=== PATIENT | female | born 1985 | race Hispanic/Latino ===

== ENCOUNTER 2020-11-13 10:19 | Day surgery (SDC) | payer BC ==
[~2020-11-13 10:19] MED LIST: SODIUM CHLORIDE 0.9% 1000 ML 1,000 ML IV SCH
[2020-11-13] MEDS ORDERED: LIDOCAINE MPF (2%) 20 MG/1 ML VIAL 5 ML ONE (12:17)
[2020-11-13] MEDS ORDERED: propofoL 200 MG/20 ML VIAL IV ONE ×4 (12:17→12:40)
--- NOTE | 2020-11-13 12:51 | Anesthesia Day of Surgery ---
Anesthesia Day of Surgery - Day of Surgery Patient Examined: Yes Patient H&P Reviewed: Yes Patient is NPO: Yes
--- NOTE | 2020-11-13 12:51 | Anesthesia Consultation ---
Anesthesia Consult and Med Hx Date of service: 11/13/20 - Airway Anesthetic Teeth Evaluation: Good ROM Head & Neck: Adequate Mental/Hyoid Distance: Adequate Mallampati Class: Class I Intubation Access Assessment: Good - Pre-Operative Health Status ASA Pre-Surgery Classification: ASA2 Proposed Anesthetic Plan: MAC - Pulmonary Hx Smoking: Yes Hx Respiratory Symptoms: No - Cardiovascular System Hx Hypertension: No - Central Nervous System CVA: No - Gastrointestinal Hx Gastroesophageal Reflux Disease: No (possible hx IBD) - Endocrine Hx Renal Disease: No Hx Liver Disease: No Hx Insulin Dependent Diabetes: No Hx Non-Insulin Dependent Diabetes: No Hx Hypothyroidism: Yes (resolved) - Other Systems Hx Obesity: Yes (BMI 36)
--- NOTE | 2020-11-13 13:04 | Procedure Note ---
Date of procedure: 11/13/20 Pre-op diagnosis: Abdominal Pain/ Diarrhea/ GI Bleeding Post-op diagnosis: other (Mild to Moderate Distal Erosive Esophagitis/Gastric Erosion/R/O Celiac Disease/ R/O Microscopic Colitis/ R/O Ileitis) Procedure: EGD with Biopsy/ Colonoscopy with Biopsy Anesthesia: [facility] Surgeon: ROBERT JAQUEZ Estimated blood loss: minimal Pathology: list Specimen disposition: to lab Condition: stable Disposition: same day (Treat PPI, prn Bentyl and Welchol (for diarrhea). Avoid aspirin and NSAID for 4 days; otherwise resume home medication and follow up in 1 to 2 weeks ([phone]).)
--- NOTE | 2020-11-13 13:06 | Operative Report ---
PROCEDURE: Esophagogastroduodenoscopy with biopsy. INDICATIONS: This is a 35-year-old white female who has an underlying history of eczema. She has a family history of Crohn's disease. The patient's mother had Crohn's disease. She has lately been complaining of some abdominal pain, diarrhea and on occasion, GI bleeding. EGD was done to make sure there was not any significant upper GI pathology present. DESCRIPTION OF PROCEDURE: The procedure was done after getting informed consent with MAC anesthesia. Instrument was passed through the hypopharynx into the esophagus, which showed some mild to moderate distal erosive esophagitis and biopsy was done from the distal esophagus to assess for the severity of erosive esophagitis as well as from the midesophagus to rule out eosinophilic esophagitis. The stomach showed gastric erosion in the antrum and gastritis. No ulcers were noted in the straight or the retroverted view. There was no evidence of any GI bleeding within the gastric lumen. The pylorus was patent. The duodenum in the first and second portion appeared normal. There was no blood within the duodenal lumen. Biopsy was done from the second part to rule out for possible celiac disease. Additional biopsy was done from the gastric antrum, gastric body and angular incisura to rule out for H. pylori and atrophic gastritis. There was minimal bleeding associated with the procedure. No complications associated with the procedure. ASSESSMENT: Abdominal pain, mild to moderate distal erosive esophagitis, rule out eosinophilic esophagitis, gastritis, gastric erosion, rule out celiac disease. No active upper GI bleeding noted. PLAN: To treat the patient with PPI, have the patient avoid aspirin and aspirin-related products for the next few days and also treat the patient with Bentyl for any abdominal pain. Colonoscopy will be done for further assessment of the patient's diarrhea and to rule out for any inflammatory bowel disease since the patient has a family history of Crohn's disease, namely the patient's mother. The procedure was done in the GI lab with assistance of the GI lab team, which included Dorys ARZATE; Jose A jameson and with assistance of Anesthesia. JOB# [id number] RYDER/SHAWNA
--- NOTE | 2020-11-13 13:11 | Operative Report ---
PROCEDURE: Colonoscopy with biopsy. INDICATIONS: This is a 35-year-old white female who has been complaining of some abdominal pain, diarrhea and on occasion GI bleeding. She has a family history of Crohn's disease. Mother had Crohn's disease. EGD had shown presence of gastric erosion, gastritis, and some esophagitis, but no evidence of any upper GI bleeding or no evidence of any peptic ulcer disease involving the gastric or the duodenal lumen. DESCRIPTION OF PROCEDURE: Colonoscopy was done after getting informed consent with MAC anesthesia. Initial rectal exam was unremarkable. Instrument was passed through the rectum onto the cecum, which was identified with ileocecal valve and the appendiceal orifice. The cecum was also visualized on the retroverted view. No additional pathology was noted. The terminal ileum was intubated, showed normal mucosa. Biopsy was done to rule out for possible ileitis. Visualization was fair to good. Cecum, ascending colon, transverse colon, descending colon, and sigmoid showed normal mucosa. Random biopsies were done to rule out for possible microscopic colitis and the rectum showed some minor internal hemorrhoid, which may have contributed to the bleeding, but did not appear to be very prominent at present. ASSESSMENT: Diarrhea. Family history of Crohn's disease, rule out microscopic colitis, rule out ileitis, minor internal hemorrhoid. PLAN: To avoid aspirin and aspirin-related products for the next few days. Treat the patient with Welchol for the diarrhea, Bentyl for any abdominal pain and PPI because of the EGD findings of esophagitis, gastric erosion, gastritis. The patient will be asked to follow up in the office in 1-2 weeks' time. The procedure was done in the GI lab with assistance of the GI lab team, which included CARITO, Dorys Olson; Hai jameson and with assistance of anesthesia. JOB# [id number] RYDER/SHAWNA
--- NOTE | 2020-11-13 13:15 | Post Anesthesia Evaluation ---
- Post Anesthesia Evaluation Patient Participated: Yes Airway Patent: Yes Stable Respiratory Function: Yes Nausea/Vomiting: No Temp > 96.8F: Yes Pain Manageable: Yes Adequeate Hydration: Yes Anesthesia Complications: No
[2020-11-13 13:51] VITALS: BP 101/57
== END 2020-11-13 13:30 | disposition home or self-care (01) ==
LOC: GIO 10:19
DX: R10.9 Unspecified abdominal pain (principal); R19.7 Diarrhea, unspecified; K64.8 Other hemorrhoids; K31.89 Other diseases of stomach and duodenum; K63.89 Other specified diseases of intestine; K20.90 Esophagitis, unspecified without bleeding; K29.70 Gastritis, unspecified, without bleeding; F17.210 Nicotine dependence, cigarettes, uncomplicated; E66.9 Obesity, unspecified; E03.9 Hypothyroidism, unspecified; Z88.0 Allergy status to penicillin; Z79.899 Other long term (current) drug therapy; Z68.36 Body mass index [BMI] 36.0-36.9, adult
CPT/HCPCS: 43239; 45380; 81025; 88305; 88342; J2704; J7030